=== PATIENT | male | born 1990 | race Hispanic/Latino ===

== ENCOUNTER 2024-02-08 18:57 | Emergency (ER) | payer OTHER ==
[~2024-02-08] VITALS: Ht 172.7 cm; Wt 88.9 kg
[2024-02-08 20:23] LABS: BASOPHILS # (AUTO) 0.04 K/uL (0.00-0.20); BASOPHILS % (AUTO) 0.8 % (0.0-5.0); EOSINOPHILS # (AUTO) 0.02 K/uL (0.00-0.70); EOSINOPHILS % (AUTO) 0.4 % (0.0-8.0); HEMATOCRIT 37.2 % (42-54); IMMATURE GRANULOCYTE ABSOLUTE 0.02 K/uL (0-1); LYMPHOCYTES # (AUTO) 1.7 K/uL (1.0-4.8); LYMPHOCYTES % (AUTO) 35.2 % (21.0-51.0); MEAN CORPUSCULAR HEMOGLOBIN 30.1 pg (27.0-33.0); MEAN CORPUSCULAR HGB CONC 36.3 g/dL (32.0-36.0); MONOCYTES # (AUTO) 0.3 K/uL (0.1-1.0); MONOCYTES % (AUTO) 6.7 % (3.0-13.0); NEUTROPHILS # (AUTO) 2.8 K/uL (1.8-7.7); NEUTROPHILS % (AUTO) 56.5 % (40.0-77.0); PLATELET COUNT (AUTO) 192 K/uL (130-400); RED BLOOD CELL COUNT(AUTO) 4.48 MIL/uL (4.50-6.20); RED CELL DISTRIBUTION WIDTH 12.5 % (11.0-15.5); WHITE BLOOD COUNT (AUTO) 4.9 K/uL (4.8-10.8)
[2024-02-08] MEDS: 0.9%NACL 1000ML 1,000 ML IV ONE (20:26)
[2024-02-08 20:33] LABS: CREATININE 0.9 mg/dL (0.5-1.3); POTASSIUM 3.4 mmol/L (3.5-5.1)
[2024-02-08 20:38] LABS: ALBUMIN 4.2 g/dL (3.5-5.0); BILIRUBIN,TOTAL 0.3 mg/dL (0.2-1.0); TOTAL PROTEIN, SERUM 7.8 g/dL (6.0-8.3)
[2024-02-08 21:28] VITALS: BP 136/90; PULSE 76; RESP 18; O2SAT 99
== END 2024-02-08 22:02 | disposition home or self-care (01) ==
LOC: EDH 18:57
DX: T67.9XXA Effect of heat and light, unspecified, initial encounter (principal); F14.10 Cocaine abuse, uncomplicated; X58.XXXA Exposure to other specified factors, initial encounter; Y93.89 Activity, other specified; Y92.89 Other specified places as the place of occurrence of the external cause; Y99.8 Other external cause status
CPT/HCPCS: 99284; 96360; 82550; 84484; 80053; 85025; 36415; 93005; J7030